=== PATIENT | female | born 1975 | race African-American/Black ===

== ENCOUNTER → 2016-05-29 | Outpatient (CLI) | payer OTHER ==
--- NOTE | ~2016-05-29 | MY11 ---
[facility] A Service of [facility] RADIOLOGY TEXT RESULTS PATIENT: ANTHONY MART LOCATION: [facility] : 73 UNIT #: [id number] AGE: [address]: Katiana Ricardo MD SEX: F ORDER DR: [id number] [facility] [address] [place], [place] [address] [id number] O MR#: [id number] Acc #: [id number] NAME: ANTHONY MART : 1975 SEX: F STUDY DATE/TIME: 05/29/2016 16:27 UNIT: [facility] ROOM: STUDY DESCRIPTION: MY Mammogram Screening Dig Danilo Attending Physician: Katiana Ricardo M.D. Referring Physician: Katiana Ricardo M.D. Ordering Physician: Katiana Ricardo M.D. Primary Care Physician: Katiana Ricardo M.D. MEDICAL IMAGING REPORT This report is preliminary unless electronic signature is present EXAM Digital screening mammogram, 05/29/2016, [facility]. HISTORY 41-year-old woman baseline mammogram. Positive family history, 2 aunts. COMPARISON None FINDINGS Digital imaging of each breast was completed utilizing a two-view examination of each breast in craniocaudal and mediolateral-oblique projections. Review and interpretation of digital mammograms include a second review in conjunction with FDA-approved CAD device. There is a normal parenchymal presentation bilaterally consistent with the patient's age. There are no breast masses imaged and no parenchymal asymmetry is visualized. There are no suspicious microcalcifications and I see no focal architectural disturbance. IMPRESSION Negative screening digital mammogram. One-year followup recommended. Patients over the age of 40 are entered into a reminder system with target due date for the next mammogram. A result letter will also be sent to the patient. BIRADS: 1 Negative Dictated by... Dandre Jerome M.D. [facility] A Service of [facility] RADIOLOGY TEXT RESULTS PATIENT: ANTHONY MART LOCATION: [facility] : 73 UNIT #: [id number] AGE: [address]: Katiana Ricardo MD SEX: F ORDER DR: THIS IS AN ELECTRONICALLY VERIFIED REPORT Dandre Jerome M.D. at 05/30/2016 11:41 AM JOE/marguerite TD: 05/30/2016 09:45 JOB #: [id number] MEDICAL IMAGING REPORT Page 1 of 1 COPY
== END | disposition home or self-care (01) ==
LOC: CWCC 16:04
DX: Z12.31 Encounter for screening mammogram for malignant neoplasm of breast (principal); Z80.3 Family history of malignant neoplasm of breast
CPT/HCPCS: G0202